=== PATIENT | female | born 1965 | race Caucasian/White ===

== ENCOUNTER 2017-12-29 15:19 | Inpatient (IN) | payer OTHER ==
[2017-12-29 17:06] LABS: ADD MAN DIFF? NO
[2017-12-29 17:18] LABS: BASOPHILS % 0.2 % (0.0-2.0); EOSINOPHILS % 0.5 % (0.0-7.0); HEMATOCRIT 39.3 % (37.0-47.0); HEMOGLOBIN 12.4 g/dl (12.0-16.0); LYMPHOCYTES # 0.8 10^3/ul (0.8-2.9); LYMPHOCYTES % 20.1 % (15.0-51.0); MEAN CORPUSCULAR HEMOGLOBIN 32.5 pg (29.0-33.0); MEAN CORPUSCULAR HGB CONC 31.6 g/dl (32.0-37.0); MEAN CORPUSCULAR VOLUME 102.9 fl (82.0-101.0); MEAN PLATELET VOLUME 9.1 fl (7.4-10.4); MONOCYTE # 0.3 10^3/ul (0.3-0.9); NEUTROPHIL # 2.8 10^3/ul (1.6-7.5); NEUTROPHILS % 70.5 % (39.0-77.0); PLATELET COUNT 308 10^3/UL (140-415); RED BLOOD COUNT 3.82 10^6/ul (4.20-5.40); RED CELL DISTRIBUTION WIDTH 13.4 % (11.5-14.5)
[2017-12-29] MEDS: morphine 4 MG/ML VIAL IV (17:21)
[2017-12-29] MEDS: ONDANSETRON 4 MG INJ IV ×2 (17:21→20:51)
[2017-12-29 17:25] LABS: ALANINE AMINOTRANSFERASE 56 IU/L (13-69); ALBUMIN 3.3 g/dl (3.3-4.9); ALBUMIN/GLOBULIN RATIO 1.06; ALKALINE PHOSPHATASE 78 IU/L (42-121); AMYLASE 65 U/L (11-123); ANION GAP 13 (8-16); ASPARTATE AMINO TRANSFERASE 32 IU/L (15-46); BILIRUBIN,INDIRECT 0.4 mg/dl (0-1.1); BILIRUBIN,TOTAL 0.4 mg/dl (0.2-1.3); BLOOD UREA NITROGEN 15 mg/dl (7-20); CALCIUM 8.5 mg/dl (8.4-10.2); CARBON DIOXIDE 27 mmol/L (21-31); CHLORIDE 107 mmol/L (97-110); CREATININE 0.73 mg/dl (0.44-1.00); GLUCOSE 140 mg/dl (70-220); LIPASE 44 U/L (23-300); SODIUM 143 mmol/L (135-144); TOTAL PROTEIN 6.4 g/dl (6.1-8.1)
[2017-12-29 17:40] LABS: PARTIAL THROMBOPLASTIN TIME 28.5 Sec (25.0-35.0); PROTIME 12.2 Sec (11.9-14.9)
[2017-12-29] MEDS: SOD CHLORIDE 0.9% 1,000 ML IV ×2 (18:21→21:55)
[2017-12-29] MEDS: SOD CHLORIDE 0.9% 100 ML (19:06)
[2017-12-29] MEDS: IOHEXOL 300MG/ML 150 ML BTL (19:06)
[2017-12-29] MEDS: HYDROmorphONE 1 MG/ML SYG IV (20:51)
[2017-12-29] MEDS ORDERED: NACL 0.9% 3 ML SYG IV (21:00)
[2017-12-29] MEDS ORDERED: ACETAMINOPHEN 325 MG TAB PO (21:00)
[2017-12-29] MEDS ORDERED: ACETAMINOPHEN 650 MG SUPP PR (21:00)
[2017-12-29] MEDS: FAMOTIDINE 20 MG INJ IV (21:56)
[2017-12-30] MEDS: ONDANSETRON 4 MG INJ IV ×3 (01:57→21:25)
[2017-12-30] MEDS: morphine 2 MG INJ IV ×4 (01:58→21:26)
[2017-12-30 05:52] LABS: WHITE BLOOD COUNT 5.3 10^3/ul (4.8-10.8)
[2017-12-30 05:52] LABS: HEMATOCRIT 31.9 % (37.0-47.0); HEMOGLOBIN 9.9 g/dl (12.0-16.0); MEAN CORPUSCULAR VOLUME 103.2 fl (82.0-101.0); MEAN PLATELET VOLUME 8.9 fl (7.4-10.4); PLATELET COUNT 218 10^3/UL (140-415); RED BLOOD COUNT 3.09 10^6/ul (4.20-5.40); RED CELL DISTRIBUTION WIDTH 13.7 % (11.5-14.5)
[2017-12-30 06:16] LABS: ADD UMIC NO; UR ASCORBIC ACID 20 mg/dL (NEGATIVE); UR BILIRUBIN (Dip) NEGATIVE (NEGATIVE); UR BLOOD (Dip) NEGATIVE (NEGATIVE); UR CLARITY CLEAR (CLEAR); UR COLOR YELLOW (YELLOW); UR GLUCOSE (Dip) NEGATIVE (NEGATIVE); UR KETONES (Dip) NEGATIVE (NEGATIVE); UR LEUKOCYTE ESTERASE (Dip) NEGATIVE Leu/ul (NEGATIVE); UR NITRITE (Dip) NEGATIVE (NEGATIVE); UR TOTAL PROTEIN (Dip) NEGATIVE (NEGATIVE); UR UROBILINOGEN (Dip) NEGATIVE (NEGATIVE)
[2017-12-30 06:17] LABS: ALANINE AMINOTRANSFERASE 42 IU/L (13-69); ALBUMIN 2.4 g/dl (3.3-4.9); ALBUMIN/GLOBULIN RATIO 0.92; ALKALINE PHOSPHATASE 62 IU/L (42-121); ANION GAP 9 (8-16); ASPARTATE AMINO TRANSFERASE 15 IU/L (15-46); BILIRUBIN,INDIRECT 0.3 mg/dl (0-1.1); BILIRUBIN,TOTAL 0.3 mg/dl (0.2-1.3); BLOOD UREA NITROGEN 12 mg/dl (7-20); CARBON DIOXIDE 29 mmol/L (21-31); CHLORIDE 110 mmol/L (97-110); CREATININE 0.78 mg/dl (0.44-1.00); GLUCOSE 74 mg/dl (70-220); POTASSIUM 4.4 mmol/L (3.5-5.1); SODIUM 144 mmol/L (135-144)
[2017-12-30 06:37] LABS: ADD MAN DIFF? YES; POSITIVE DIFF @See below
[2017-12-30] MEDS: SOD CHLORIDE 0.9% 1,000 ML IV ×2 (07:14→17:23)
[2017-12-30 08:01] LABS: HEMOGLOBIN A1C 5.2 % (0-5.9)
[2017-12-30 09:07] LABS: ANISOCYTOSIS 1+ (0-0); BAND NEUTROPHILS #M 0.4 10^3/ul (0.0-0.6); BAND NEUTROPHILS % (M) 9 % (0-4); BASOPHIL #M 0.1 10^3/ul (0.0-0.0); BASOPHILS % (M) 2 % (0-2); EOSINOPHILS % (M) 4 % (0-7); GIANT THROMBO% (M) 1 % (0-0); LYMPHOCYTES #M 1.8 10^3/ul (0.8-2.9); LYMPHOCYTES % (M) 34 % (15-51); MONOCYTE #M 0.2 10^3/ul (0.3-0.9); MONOCYTES % (M) 5 % (0-11); MYELOCYTES % (M) 1 % (0-0); PLATELET ESTIMATE NORMAL; POLYCHROMASIA 3+ (0-0); SEG NEUT #M 2.4 10^3/ul (1.6-7.5); SEGMENTED NEUTROPHILS (M) % 45 % (39-77); SMUDGE%M 12 % (0-0)
[2017-12-30] MEDS: FAMOTIDINE 20 MG INJ IV ×2 (09:34→21:25)
[2017-12-30] MEDS: METHYLPREDNISOLONE 125 MG INJ IV (09:35)
[2017-12-30 13:13] LABS: IRON 27 ug/dl (35-150)
[2017-12-30 13:22] LABS: % IRON SATURATION 14 % SAT (22-52); TOTAL IRON BINDING CAPACITY 197 ug/dl (241-421)
[2017-12-30] MEDS: BISACODYL 10 MG SUPP PR (16:30)
[2017-12-30] MEDS: SOD FERRIC GLUC COMPLX 125 MG in SOD CHLORIDE 0.9% 100 ML IVPB (17:20)
[2017-12-30] MEDS ORDERED: predniSONE 10 MG TAB PO (21:00)
[2017-12-30] MEDS: LUBIPROSTONE 24 MCG CAP PO (21:25)
[2017-12-30] MEDS: MESALAMINE (EC) 400 MG CAP PO (21:25)
[2017-12-31] MEDS: SOD CHLORIDE 0.9% 1,000 ML IV ×4 (05:25→22:55)
[2017-12-31] MEDS: BISACODYL 10 MG SUPP PR (05:29)
[2017-12-31 05:35] LABS: ADD MAN DIFF? NO
[2017-12-31 05:42] LABS: WHITE BLOOD COUNT 5.1 10^3/ul (4.8-10.8)
[2017-12-31 05:42] LABS: BASOPHILS % 0.4 % (0.0-2.0); LYMPHOCYTES # 1.2 10^3/ul (0.8-2.9); LYMPHOCYTES % 23.5 % (15.0-51.0); MEAN CORPUSCULAR HEMOGLOBIN 31.8 pg (29.0-33.0); MEAN CORPUSCULAR HGB CONC 31.4 g/dl (32.0-37.0); MEAN CORPUSCULAR VOLUME 101.2 fl (82.0-101.0); MEAN PLATELET VOLUME 8.8 fl (7.4-10.4); MONOCYTE # 0.6 10^3/ul (0.3-0.9); MONOCYTES % 12.5 % (0.0-11.0); NEUTROPHIL # 3.3 10^3/ul (1.6-7.5); NEUTROPHILS % 63.2 % (39.0-77.0); PLATELET COUNT 230 10^3/UL (140-415); RED BLOOD COUNT 3.46 10^6/ul (4.20-5.40); RED CELL DISTRIBUTION WIDTH 13.3 % (11.5-14.5)
[2017-12-31] MEDS ORDERED: MESALAMINE (EC) 400 MG CAP PO (09:00)
[2017-12-31] MEDS: METHYLPREDNISOLONE 125 MG INJ IV (09:20)
[2017-12-31] MEDS: FAMOTIDINE 20 MG INJ IV ×2 (09:20→20:32)
[2017-12-31] MEDS: MESALAMINE (EC) 400 MG CAP PO ×3 (09:21→20:32)
[2017-12-31] MEDS: LUBIPROSTONE 24 MCG CAP PO ×2 (09:21→20:26)
[2017-12-31] MEDS: morphine 2 MG INJ IV (09:22)
[2017-12-31] MEDS: MAGNESIUM CITRATE 300 ML BTL PO (15:17)
[2017-12-31] MEDS: SOD FERRIC GLUC COMPLX 125 MG in SOD CHLORIDE 0.9% 100 ML IVPB (17:41)
[2017-12-31] MEDS: ALPRAZOLAM 1 MG TAB PO (20:32)
[2018-01-01] MEDS: morphine 2 MG INJ IV (02:25)
[2018-01-01] MEDS: ONDANSETRON 4 MG INJ IV (02:26)
[2018-01-01] MEDS: SOD CHLORIDE 0.9% 1,000 ML IV ×2 (05:00→17:21)
[2018-01-01 05:46] LABS: HEMATOCRIT 31.7 % (37.0-47.0); HEMOGLOBIN 10.2 g/dl (12.0-16.0); MEAN CORPUSCULAR HEMOGLOBIN 32.2 pg (29.0-33.0); MEAN CORPUSCULAR HGB CONC 32.2 g/dl (32.0-37.0); MEAN PLATELET VOLUME 8.7 fl (7.4-10.4); PLATELET COUNT 207 10^3/UL (140-415); RED BLOOD COUNT 3.17 10^6/ul (4.20-5.40); RED CELL DISTRIBUTION WIDTH 13.3 % (11.5-14.5)
[2018-01-01 06:20] LABS: ADD MAN DIFF? YES; ANION GAP 11 (8-16); BLOOD UREA NITROGEN 13 mg/dl (7-20); CALCIUM 8.3 mg/dl (8.4-10.2); CARBON DIOXIDE 28 mmol/L (21-31); CHLORIDE 108 mmol/L (97-110); CREATININE 0.72 mg/dl (0.44-1.00); GLUCOSE 73 mg/dl (70-220); POSITIVE DIFF @See below; POTASSIUM 4.6 mmol/L (3.5-5.1); SODIUM 142 mmol/L (135-144)
[2018-01-01] MEDS: METHYLPREDNISOLONE 125 MG INJ IV (08:54)
[2018-01-01] MEDS: FAMOTIDINE 20 MG INJ IV ×2 (08:54→20:39)
[2018-01-01] MEDS: LUBIPROSTONE 24 MCG CAP PO ×2 (08:54→20:38)
[2018-01-01] MEDS: MESALAMINE (EC) 400 MG CAP PO ×3 (08:55→20:38)
[2018-01-01 10:24] LABS: EOSINOPHILS % (M) 2 % (0-7); LYMPHOCYTES #M 0.7 10^3/ul (0.8-2.9); LYMPHOCYTES % (M) 15 % (15-51); MONOCYTE #M 0.4 10^3/ul (0.3-0.9); MONOCYTES % (M) 8 % (0-11); PLATELET ESTIMATE NORMAL; POLYCHROMASIA 1+ (0-0); SEGMENTED NEUTROPHILS (M) % 75 % (39-77); SMUDGE%M 6 % (0-0)
[2018-01-01] MEDS: BISACODYL (EC) 5 MG TAB PO ×2 (12:22→20:43)
[2018-01-01] MEDS: PEG/ELECTROLYTES 4L BTL PO ×2 (14:22→17:21)
[2018-01-01] MEDS: SOD FERRIC GLUC COMPLX 125 MG in SOD CHLORIDE 0.9% 100 ML IVPB (17:21)
[2018-01-01] MEDS: ALPRAZOLAM 1 MG TAB PO (20:39)
[2018-01-02] MEDS: morphine 2 MG INJ IV ×2 (03:54→14:02)
[2018-01-02] MEDS: SOD CHLORIDE 0.9% 1,000 ML IV ×3 (04:55→21:11)
[2018-01-02 06:44] LABS: ADD MAN DIFF? NO
[2018-01-02 06:47] LABS: EOSINOPHILS % 0.3 % (0.0-7.0); HEMATOCRIT 30.4 % (37.0-47.0); HEMOGLOBIN 9.8 g/dl (12.0-16.0); LYMPHOCYTES # 1.4 10^3/ul (0.8-2.9); LYMPHOCYTES % 44.7 % (15.0-51.0); MEAN CORPUSCULAR HEMOGLOBIN 32.5 pg (29.0-33.0); MEAN CORPUSCULAR HGB CONC 32.2 g/dl (32.0-37.0); MEAN CORPUSCULAR VOLUME 100.7 fl (82.0-101.0); MEAN PLATELET VOLUME 8.6 fl (7.4-10.4); MONOCYTE # 0.5 10^3/ul (0.3-0.9); MONOCYTES % 15.9 % (0.0-11.0); NEUTROPHIL # 1.2 10^3/ul (1.6-7.5); NEUTROPHILS % 38.1 % (39.0-77.0); PLATELET COUNT 186 10^3/UL (140-415); RED BLOOD COUNT 3.02 10^6/ul (4.20-5.40); RED CELL DISTRIBUTION WIDTH 13.8 % (11.5-14.5)
[2018-01-02 06:47] LABS: WHITE BLOOD COUNT 3.1 10^3/ul (4.8-10.8)
[2018-01-02 07:11] LABS: ANION GAP 11 (8-16); BLOOD UREA NITROGEN 13 mg/dl (7-20); CALCIUM 8.1 mg/dl (8.4-10.2); CARBON DIOXIDE 27 mmol/L (21-31); CHLORIDE 109 mmol/L (97-110); CREATININE 0.77 mg/dl (0.44-1.00); GLUCOSE 64 mg/dl (70-220); POTASSIUM 3.6 mmol/L (3.5-5.1); SODIUM 143 mmol/L (135-144)
[2018-01-02] MEDS: FAMOTIDINE 20 MG INJ IV ×2 (08:46→21:12)
[2018-01-02] MEDS: METHYLPREDNISOLONE 125 MG INJ IV (08:46)
[2018-01-02] MEDS: MESALAMINE (EC) 400 MG CAP PO ×3 (08:47→21:10)
[2018-01-02] MEDS: LUBIPROSTONE 24 MCG CAP PO ×2 (08:47→21:10)
[2018-01-02] MEDS: PROPOFOL 20 ML (12:40)
[2018-01-02] MEDS: MIDAZOLAM 1 MG/ML 2 ML INJ (12:40)
[2018-01-02] MEDS: ONDANSETRON 4 MG INJ IV (14:01)
[2018-01-02] MEDS: VANCOMYCIN HCL 250 MG/5ML POSYG PO ×2 (17:18→23:38)
[2018-01-02] MEDS: ALPRAZOLAM 1 MG TAB PO (22:33)
[2018-01-03] MEDS: VANCOMYCIN HCL 250 MG/5ML POSYG PO ×4 (06:05→23:52)
[2018-01-03] MEDS: LUBIPROSTONE 24 MCG CAP PO ×2 (08:25→20:45)
[2018-01-03] MEDS: MESALAMINE (EC) 400 MG CAP PO ×3 (08:26→20:44)
[2018-01-03] MEDS: FAMOTIDINE 20 MG INJ IV ×2 (08:26→20:44)
[2018-01-03] MEDS: METHYLPREDNISOLONE 125 MG INJ IV (08:26)
[2018-01-03] MEDS: SOD CHLORIDE 0.9% 1,000 ML IV ×2 (08:35→20:53)
[2018-01-03] MEDS: ALPRAZOLAM 1 MG TAB PO (22:22)
[2018-01-04] MEDS: morphine LIQ (10 MG/5 ML) CUP PO ×3 (03:17→21:10)
[2018-01-04 06:08] LABS: ADD MAN DIFF? NO
[2018-01-04 06:14] LABS: WHITE BLOOD COUNT 4.3 10^3/ul (4.8-10.8)
[2018-01-04 06:14] LABS: BASOPHILS % 0.2 % (0.0-2.0); EOSINOPHILS % 0.9 % (0.0-7.0); HEMATOCRIT 30.8 % (37.0-47.0); HEMOGLOBIN 9.8 g/dl (12.0-16.0); LYMPHOCYTES # 1.4 10^3/ul (0.8-2.9); LYMPHOCYTES % 31.6 % (15.0-51.0); MEAN CORPUSCULAR HGB CONC 31.8 g/dl (32.0-37.0); MEAN CORPUSCULAR VOLUME 100.7 fl (82.0-101.0); MEAN PLATELET VOLUME 8.5 fl (7.4-10.4); MONOCYTE # 0.4 10^3/ul (0.3-0.9); MONOCYTES % 10.1 % (0.0-11.0); NEUTROPHIL # 2.4 10^3/ul (1.6-7.5); NEUTROPHILS % 56.3 % (39.0-77.0); PLATELET COUNT 177 10^3/UL (140-415); RED BLOOD COUNT 3.06 10^6/ul (4.20-5.40); RED CELL DISTRIBUTION WIDTH 13.3 % (11.5-14.5)
[2018-01-04 06:36] LABS: ANION GAP 10 (8-16); BLOOD UREA NITROGEN 10 mg/dl (7-20); CARBON DIOXIDE 29 mmol/L (21-31); CHLORIDE 107 mmol/L (97-110); CREATININE 0.77 mg/dl (0.44-1.00); GLUCOSE 91 mg/dl (70-220); POTASSIUM 3.6 mmol/L (3.5-5.1); SODIUM 142 mmol/L (135-144)
[2018-01-04] MEDS: SOD CHLORIDE 0.9% 1,000 ML IV ×2 (06:55→11:44)
[2018-01-04] MEDS: FAMOTIDINE 20 MG INJ IV ×2 (08:56→21:10)
[2018-01-04] MEDS: MESALAMINE (EC) 400 MG CAP PO ×3 (08:57→21:10)
[2018-01-04] MEDS: LUBIPROSTONE 24 MCG CAP PO ×2 (08:57→21:10)
[2018-01-04] MEDS: METHYLPREDNISOLONE 125 MG INJ IV (08:57)
[2018-01-04] MEDS: VANCOMYCIN HCL 250 MG/5ML POSYG PO ×3 (09:00→17:59)
[2018-01-04] MEDS: CHOLECALCIFEROL 1,000 UNIT TAB PO (12:37)
[2018-01-05] MEDS: VANCOMYCIN HCL 250 MG/5ML POSYG PO ×4 (00:14→18:28)
[2018-01-05] MEDS: SOD CHLORIDE 0.9% 1,000 ML IV ×5 (00:16→22:55)
[2018-01-05] MEDS: ALPRAZOLAM 1 MG TAB PO ×2 (00:16→21:41)
[2018-01-05] MEDS: LUBIPROSTONE 24 MCG CAP PO ×2 (08:31→20:50)
[2018-01-05] MEDS: MESALAMINE (EC) 400 MG CAP PO ×3 (08:31→20:50)
[2018-01-05] MEDS: CHOLECALCIFEROL 1,000 UNIT TAB PO (08:33)
[2018-01-05] MEDS: METHYLPREDNISOLONE 125 MG INJ IV (08:33)
[2018-01-05] MEDS: FAMOTIDINE 20 MG INJ IV ×2 (08:33→20:49)
[2018-01-06] MEDS: VANCOMYCIN HCL 250 MG/5ML POSYG PO ×3 (00:08→12:36)
[2018-01-06] MEDS: SOD CHLORIDE 0.9% 1,000 ML IV ×4 (02:25→18:47)
[2018-01-06] MEDS: FAMOTIDINE 20 MG INJ IV ×2 (10:00→20:21)
[2018-01-06] MEDS: LUBIPROSTONE 24 MCG CAP PO ×2 (10:00→20:21)
[2018-01-06] MEDS: MESALAMINE (EC) 400 MG CAP PO ×3 (10:00→20:21)
[2018-01-06] MEDS: CHOLECALCIFEROL 1,000 UNIT TAB PO (10:01)
[2018-01-06] MEDS: predniSONE 50 MG TAB PO (10:01)
[2018-01-06] MEDS: POLYETHYLENE GLYCOL 17 GM PACKET PO (10:01)
[2018-01-06] MEDS: ALPRAZOLAM 1 MG TAB PO (23:17)
[2018-01-07] MEDS: SOD CHLORIDE 0.9% 1,000 ML IV ×3 (00:14→09:56)
[2018-01-07 06:19] LABS: ADD MAN DIFF? NO
[2018-01-07 06:32] LABS: BASOPHILS % 0.4 % (0.0-2.0); EOSINOPHILS % 0.7 % (0.0-7.0); HEMOGLOBIN 10.4 g/dl (12.0-16.0); LYMPHOCYTES % 37.4 % (15.0-51.0); MEAN CORPUSCULAR HGB CONC 31.5 g/dl (32.0-37.0); MEAN CORPUSCULAR VOLUME 101.5 fl (82.0-101.0); MEAN PLATELET VOLUME 8.7 fl (7.4-10.4); MONOCYTE # 0.5 10^3/ul (0.3-0.9); MONOCYTES % 8.8 % (0.0-11.0); NEUTROPHIL # 2.8 10^3/ul (1.6-7.5); NEUTROPHILS % 51.2 % (39.0-77.0); PLATELET COUNT 171 10^3/UL (140-415); RED BLOOD COUNT 3.25 10^6/ul (4.20-5.40); RED CELL DISTRIBUTION WIDTH 13.9 % (11.5-14.5)
[2018-01-07 06:32] LABS: WHITE BLOOD COUNT 5.4 10^3/ul (4.8-10.8)
[2018-01-07 07:12] LABS: ANION GAP 8 (8-16); BLOOD UREA NITROGEN 12 mg/dl (7-20); CALCIUM 8.3 mg/dl (8.4-10.2); CARBON DIOXIDE 28 mmol/L (21-31); CHLORIDE 109 mmol/L (97-110); CREATININE 0.63 mg/dl (0.44-1.00); GLUCOSE 92 mg/dl (70-220); POTASSIUM 3.4 mmol/L (3.5-5.1); SODIUM 142 mmol/L (135-144)
[2018-01-07] MEDS: FAMOTIDINE 20 MG INJ IV (09:48)
[2018-01-07] MEDS: MESALAMINE (EC) 400 MG CAP PO (09:48)
[2018-01-07] MEDS: POLYETHYLENE GLYCOL 17 GM PACKET PO (09:48)
[2018-01-07] MEDS: predniSONE 50 MG TAB PO (09:48)
[2018-01-07] MEDS: LUBIPROSTONE 24 MCG CAP PO (09:48)
[2018-01-07] MEDS: CHOLECALCIFEROL 1,000 UNIT TAB PO (09:48)
== END 2018-01-07 13:23 | disposition home or self-care (01) | DRG 387 ==
LOC: E/R 15:19 → MS2 20:46
PROC: 0DBP8ZX Excision of Rectum, Via Natural or Artificial Opening Endoscopic, Diagnostic (ICD-10-PCS; principal; 2018-01-02 11:50)
PROC: 0DBM8ZX Excision of Descending Colon, Via Natural or Artificial Opening Endoscopic, Diagnostic (ICD-10-PCS; 2018-01-02 11:50)
DX: K51.811 Other ulcerative colitis with rectal bleeding (principal); K51.818 Other ulcerative colitis with other complication; D64.9 Anemia, unspecified; R63.4 Abnormal weight loss; Z68.20 Body mass index [BMI] 20.0-20.9, adult; K59.00 Constipation, unspecified; R14.0 Abdominal distension (gaseous); M54.5 Low back pain
CPT/HCPCS: 36415; 74177; 80048; 80053; 81003; 82150; 82728; 83036; 83540; 83690; 84703; 85025; 85610; 85730; 86850; 86900; 86901; 87075; 88305; 93005; 96361; 96374; 96375; 96376; 99285-25